=== PATIENT | female | born 1955 | race Caucasian/White ===

== ENCOUNTER 2025-01-02 21:54 | Inpatient (IN) ==
[2025-01-02 22:57] LABS: Hematocrit (blood only) 46.9 % (37.0-47.0); Hemoglobin 15.9 g/dl (12.0-16.0); Immature Granulocytes # (auto) 0.11 K/uL (0.01-0.20); Immature Granulocytes % (auto) 1.1 %; Mean Corpuscular Hemoglobin 31.7 pg (25.0-34.0); Mean Corpuscular Volume 93.4 fL (80.0-100.0); Platelet Count 205 K/uL (130-400); RDW Standard Deviation 46.3 fL (36.4-46.3); Red Blood Count 5.02 M/uL (4.20-5.40); White Blood Count 9.63 K/ul (4.8-10.8)
--- NOTE | 2025-01-02 23:12 | Emergency Department Note ---
History of Present Illness General Chief complaint: Syncope History of Present Illness This 69-year-old female currently at the [facility] for rehab from frequent falls presents ER for passing out on the toilet try to have a bowel movement tonight. Patient passed on the toilet and struck the left side of her face. Patient then crawled out to the living room and vomited. EMS was then summoned. Patient complains of left-sided head face and neck discomfort. Patient denies chest pain, dyspnea, abdominal pain, back pain, numbness, tingling, localized weakness. No blood thinners. Home Medications Medication Instructions Recorded Confirmed Type acetaminophen 325 mg tablet 325 mg PO Q6H PRN PAIN/FEVER 01/03/25 01/03/25 History (Tylenol) atorvastatin 20 mg tablet 20 mg PO DAILY 01/03/25 01/03/25 History benztropine 0.5 mg tablet 0.5 mg PO BID 01/03/25 01/03/25 History fluticasone propionate 50 1 spray intranasal BID PRN Nasal 01/03/25 01/03/25 History mcg/actuation nasal Congestion spray,suspension lamotrigine 200 mg tablet 200 mg PO DAILY 01/03/25 01/03/25 History phenylephrine 5 1 cap PO DIRECTED PRN COLD/FLU 01/03/25 01/03/25 History mg-dextromethorphan 10 SYMPTOMS mg-acetaminophen 325 mg capsule (Daytime Cold and Flu Relief (phenylephrine)) propranolol 20 mg tablet 20 mg PO BID 01/03/25 01/03/25 History trazodone 150 mg tablet 150 mg PO HS 01/03/25 01/03/25 History Allergies Allergy/AdvReac Type Severity Reaction Status Date / Time bupropion Allergy Intermediate HIVES Verified 01/03/25 00:04 morphine AdvReac Intermediate ITCHY Verified 01/03/25 00:04 vancomycin AdvReac Mild RED Verified 01/03/25 00:04 Past Med/Surg History Problem List (Updated 01/03/25 @ 02:53 by Deisi Arreaga PA-C) Sinusitis (Acute) Fracture, nasal (Acute) Head injury (Acute) Vasovagal syncope (Acute) Syncope and collapse Social History Smoking Status: Never smoker Feels Safe at Home: Yes Gender Identity: Female Review of Systems A total of 10 systems reviewed and were otherwise negative Physical Exam Vital Signs Vital Signs - 24 hr 01/02/25 21:59 01/02/25 21:59 01/02/25 21:59 Temperature 36.7 C 36.7 C Temperature Source Oral Oral Pulse Rate 76 Pulse Rate [Finger] Pulse Rate [Right Finger] 76 Pulse Rhythm Regular Pulse Rhythm [Finger] Pulse Rhythm [Right Finger] Regular Pulse Strength Normal Pulse Strength [Finger] Pulse Strength [Right Finger] Normal Respiratory Rate 16 16 Respiratory Effort / Characteristics Non-Labored Spontaneous Respiratory Depth Normal Normal Blood Pressure 170/99 H Blood Pressure [Right Arm] 170/99 H Blood Pressure Mean 122 Blood Pressure Mean [Right Arm] 122 Blood Pressure Position Sitting Blood Pressure Position [Right Arm] Sitting Pulse Oximetry 97 95 97 Oxygen Delivery Method Room Air Room Air Room Air Oxygen Flow Rate 0 Sepsis Recent Fever Within 48 Hours No Sepsis New/Unexplained Change in Mental Status N/A Sepsis Action Taken by Nursing No Action Required 01/02/25 21:59 01/02/25 21:59 01/02/25 22:10 Temperature 36.7 C Temperature Source Oral Pulse Rate 71 Pulse Rate [Finger] 76 Pulse Rate [Right Finger] Pulse Rhythm Pulse Rhythm [Finger] Regular Pulse Rhythm [Right Finger] Pulse Strength Pulse Strength [Finger] Normal Pulse Strength [Right Finger] Respiratory Rate 16 Respiratory Effort / Characteristics Non-Labored Spontaneous Respiratory Depth Normal Blood Pressure Blood Pressure [Right Arm] 170/99 H Blood Pressure Mean Blood Pressure Mean [Right Arm] 122 Blood Pressure Position Blood Pressure Position [Right Arm] Pulse Oximetry 97 97 Oxygen Delivery Method Room Air Room Air Oxygen Flow Rate Sepsis Recent Fever Within 48 Hours Sepsis New/Unexplained Change in Mental Status Sepsis Action Taken by Nursing 01/03/25 02:10 Temperature Temperature Source Pulse Rate 76 Pulse Rate [Finger] Pulse Rate [Right Finger] Pulse Rhythm Pulse Rhythm [Finger] Pulse Rhythm [Right Finger] Pulse Strength Pulse Strength [Finger] Pulse Strength [Right Finger] Respiratory Rate Respiratory Effort / Characteristics Respiratory Depth Blood Pressure Blood Pressure [Right Arm] Blood Pressure Mean Blood Pressure Mean [Right Arm] Blood Pressure Position Blood Pressure Position [Right Arm] Pulse Oximetry Oxygen Delivery Method Oxygen Flow Rate Sepsis Recent Fever Within 48 Hours Sepsis New/Unexplained Change in Mental Status Sepsis Action Taken by Nursing VITALS: Vitals are noted on the nurse's note and reviewed by myself. Vital signs stable. GENERAL: Pleasant patient, in no acute distress, nondiaphoretic, well-developed well-nourished. SKIN: Abrasion and contusion to left forehead and left side of face, the rest of the skin was without rashes, erythema, edema, or bruising. There is no tenting of the skin. Capillary reflex less than 2 seconds. HEAD: Normocephalic EARS: External auditory canals clear EYES: Pupils equal round and reactive to light and accommodation. Conjunctivae without injection, sclerae without icterus. Extraocular movements intact. NOSE: Patent, no discharge. MOUTH: Mucous membranes moist. Pharynx without erythema or exudate. Uvula midline. Airway patent. Tongue does not deviate. NECK: Supple without nuchal rigidity. No lymphadenopathy. No thyromegaly. Cervical spine is nontender. No JVD. C-collar is in place. HEART: Regular rate and rhythm LUNGS: Clear to auscultation bilaterally without wheezes, rales or rhonchi. No retractions or accessory muscle use. ABDOMEN: Positive bowel sounds x 4. Normal tympanic percussion. Soft, nontender, without masses or organomegaly. Vaca sign negative. No guarding or rebound tenderness. No CVA tenderness MUSCULOSKELETAL: No muscle atrophy, erythema, or edema noted. No thoracic or lumbar tenderness. 5-5 strength throughout. NEURO: Patient was alert and oriented to person place and time. Normal sensation to light and sharp touch. No focal neurological deficits. Course Administered Medications Discontinued Medications Acetaminophen (Ofirmev) 1,000 mg in 100 mls @ 400 mls/hr IV NOW STA Stop: 01/03/25 00:43 Last Admin: 01/03/25 00:41 Dose: 400 mls/hr Documented By: ANAYELI Medical Decision Making Medical Records Attestation: I reviewed the patient's medical records. Home Medications Current Medication List: was personally reviewed by me Laboratory Data Attestation: I reviewed the patient's lab results. 01/02/25 22:40 01/02/25 22:40 Lab Results 01/02/25 Range/Units 22:40 WBC 9.63 (4.8-10.8) K/ul RBC 5.02 (4.20-5.40) M/uL Hgb 15.9 (12.0-16.0) g/dl Hct 46.9 (37.0-47.0) % MCV 93.4 (80.0-100.0) fL MCH 31.7 (25.0-34.0) pg MCHC 33.9 (32.0-36.0) g/dL RDW Std Deviation 46.3 (36.4-46.3) fL RDW Coeff of Wilda 13.6 (11.5-14.5) % Plt Count 205 (130-400) K/uL MPV 9.0 L (9.4-12.4) fL Immature Gran % (Auto) 1.1 % Neut % (Auto) 77.8 % Lymph % (Auto) 12.4 % [place] % (Auto) 7.5 % Eos % (Auto) 0.6 % Baso % (Auto) 0.6 % Neut # (Auto) 7.49 H (1.40-6.50) K/uL Lymph # (Auto) 1.19 L (1.20-3.40) K/uL [place] # (Auto) 0.72 H (0.11-0.59) K/uL Eos # (Auto) 0.06 (0.00-0.50) K/uL Baso # (Auto) 0.06 (0.00-0.20) K/uL Immature Gran # (Auto) 0.11 (0.01-0.20) K/uL Sodium 139 (136-145) mmol/L Potassium 3.7 (3.5-5.1) mmol/L Chloride 106 (98-107) mmol/L Carbon Dioxide 25 (21-32) mmol/L Anion Gap 8 (3-11) BUN 21 (6-23) mg/dl Creatinine 0.81 (0.6-1.2) mg/dl Est Cr Clr Drug Dosing 63.2 ml/min eGFR 79.02 BUN/Creatinine Ratio 25.9 H (10-20) Glucose 112 H (70-99(Fasting)) mg/dl Calcium 9.4 (8.6-10.3) mg/dl Magnesium 2.2 (1.7-2.4) mg/dl Total Bilirubin 0.5 (0.2-1.0) mg/dl AST 20 (13-39) U/L ALT 23 (7-52) U/L Alkaline Phosphatase 86 (34-104) U/L Total Creatine Kinase 67 (26-192) U/L Troponin I High Sens 4.5 (0-14) pg/ml Total Protein 7.1 (6.0-8.3) gm/dl Albumin 4.1 (3.4-5.0) gm/dl Globulin 3.0 (2.5-4.0) gm/dl Albumin/Globulin Ratio 1.4 (0.9-2) TSH 1.594 (0.300-4.500) uIu/ml Imaging Data Attestation: I personally reviewed and interpreted this imaging study as follows: Radiologist's Impression: Cervical Spine CT 01/02/25 22:04 Exam(s): CT C SPINE EXAM: CT Cervical Spine Without Intravenous Contrast CLINICAL HISTORY: Reason for exam: head injury/left neck pain. TECHNIQUE: Axial computed tomography images of the cervical spine without intravenous contrast. Automated exposure control was utilized for the study. A dose lowering technique was utilized adhering to the principles of ALARA. COMPARISON: None FINDINGS: Vertebrae: Diffuse osseous demineralization.. No acute fracture. C5 vertebral mild retrolisthesis. C7 vertebral minimal anterolisthesis. Otherwise no segmental malalignment is seen. Discs/spinal canal/neural foramina: No acute findings. Multilevel predominantly C5-C7 levels degenerative disc/endplates and posterior elements spondylotic changes are seen with variable degrees of neuroforaminal stenosis. Soft tissues: Unremarkable. Other findings: Biapical pleural thickening/scarring. . IMPRESSION: No significant abnormalities post trauma. . Electronically signed by: Priyanka Bennett MD, DABR 01/03/25 00:[address] 01/02/25 22:04 Exam(s): CT FACIAL Without Contrast EXAM: CT Maxillofacial Without Intravenous Contrast CLINICAL HISTORY: Reason for exam: head injury/left face/neck pain. TECHNIQUE: Axial computed tomography images of the face without intravenous contrast. Automated exposure control was utilized for the study. A dose lowering technique was utilized adhering to the principles of ALARA. COMPARISON: None. FINDINGS: Bones/joints:: Nondisplaced subtle nasal bone fractures. Otherwise no facial bone acute fracture identified.. Soft tissues: Unremarkable. Orbits: Unremarkable. Sinuses: Completely opacified right frontal sinus. Moderate to severe right ethmoid sinusitis. Very mild right maxillary sinusitis. No air- fluid levels. Other findings: Right frontal scalp small hematoma. . IMPRESSION: Subtle nondisplaced bilateral nasal bone fractures. Please correlate clinically. A completely opacified right frontal sinus. Moderately severe right ethmoid sinusitis. No air-fluid levels. Right frontal scalp small hematoma. . Electronically signed by: Priyanka Bennett MD, DABR 01/03/25 00:[address] 01/02/25 22:04 Exam(s): CT HEAD Without Contrast EXAM: CT Head Without Intravenous Contrast CLINICAL HISTORY: Reason for exam: syncope. TECHNIQUE: Axial computed tomography images of the head/brain without intravenous contrast. Automated exposure control was utilized for the study. A dose lowering technique was utilized adhering to the principles of ALARA. COMPARISON: 05/24/2023 FINDINGS: Motion-induced image degradation. Brain: There is no acute intracranial hemorrhage, mass-effect or midline shift of structures. A small ill-defined focal zone with decreased density in the right frontal iyer radiata, reflective of old ischemic injury. Ventricles: No ventriculomegaly. Demonstrate extensive periventricular/subcortical nonspecific white matter decreased attenuation, typically attributed to sequela of chronic microvascular disease. Bones/joints: Unremarkable. No acute fracture. Soft tissues: Unremarkable. Sinuses: Ethmoid sinusitis. Mastoid air cells: No active disease. Other findings: A small frontal scalp hematoma. . IMPRESSION: No conclusive for acute intracranial pathology identified. There is continued clinical concern, MRI brain exam recommended. Significant most likely chronic ischemic changes of the brain. . Electronically signed by: Priyanka Bennett MD, DABR 01/03/25 00:09 AM MDM Narrative Prior records/ancillary studies reviewed. Triage Nursing notes reviewed. Additional history obtained from family. The patient's history was concerning for traumatic head injury Differential diagnosis: Etiologies such as concussion, contusion, fracture, subdural hematoma, epidural hematoma, intraparenchymal hemorrhage, as well as other traumatic pathologies were entertained. Physical examination findings: As above. ER treatment provided: Wound care by nursing. Patient was sent down for imaging Rocephin was ordered for sinusitis seen on imaging On reassessment the patient felt better. Diagnostics interpreted by me: ECG: Ordered for syncope EKG: Normal sinus, left posterior fascicular block, poor baseline, no acute ST-T wave changes, rate of 71. Impression normal sinus rhythm with left posterior fascicular block independently interpreted by myself The labs Independently Interpreted by myself revealed no worrisome leukocytosis, stable H&H, negative troponin Imaging studies: Imaging was reviewed and read by radiology Head injury evaluation: GCS <15 two hours after injury: 0 Suspected open or depressed skull fracture: 0 Any sign of basilar skull fracture: hemotympanum, raccoon eyes (intraorbital bruising), Bedoya sign (retroauricular bruising), or cerebrospinal fluid leak, mylene- or rhinorrhea: 0 Two or more episodes of vomitin Sixty-five years of age or older: + Amnesia for events occurring more than 30 minutes prior to impact: 0 Dangerous mechanism (pedestrian struck by motor vehicle, occupant ejected from motor vehicle, fall from >= feet or >= stairs): 0 Neurologic deficit: 0 Seizure: 0 Presence of bleeding diathesis or oral anticoagulant use: 0 Return visit for reassessment of a head injury: 0 Total:(any yes, then CT)+ Consultation: A consultation was placed with the hospitalist. The case was discussed and diagnostics were reviewed. The patient was evaluated in the ER for further treatment. It appears the patient has a head injury with nasal bone fracture from syncope with sinusitis. Patient was started on antibiotics for the sinusitis. There was no septal hematoma. Stable labs. No intracranial bleed. Nonischemic EKG. Medicine was consulted case discussed. Patient will be evaluated for admission for the syncope. By the evaluation outlined above emergent etiologies such as subdural hematoma, epidural hematoma, intraparenchymal hemorrhage, as well as others were deemed relatively unlikely. The pt informed about the findings as listed above. All questions were answered and pleased with the treatment. The chart was completed utilizing [employer] Speech voice recognition software. Grammatical errors, random word insertions, pronoun errors, and incomplete sentences are an occassional consequence of this system due to software limitations, ambient noise, and hardware issues. Any formal questions or concerns about the content, text, or information contained within the body of this dictation should be directly addressed to the physician studio assistant for clarification. Impression & Plan Vasovagal syncope, Head injury, Fracture, nasal, Sinusitis Discharge Plan Visit Data Chief Complaint: Syncope ED Provider: Vladislav Peacock ED Midlevel Provider: Deisi Arreaga Discharge Problem: Vasovagal syncope, Head injury, Fracture, nasal, Sinusitis Patient Disposition: Admitted As Inpatient Condition: Good
[2025-01-02 23:30] LABS: Thyroid Stimulating Hormone 1.594 uIu/ml (0.300-4.500)
[2025-01-02 23:44] LABS: Anion Gap 8.0 (3-11); Bilirubin,Total 0.5 mg/dl (0.2-1.0); Magnesium 2.2 mg/dl (1.7-2.4); Potassium 3.7 mmol/L (3.5-5.1); Sodium 139.0 mmol/L (136-145)
[2025-01-02 23:49] LABS: Albumin Globulin Ratio 1.4 (0.9-2); Creatinine Clr Calc Pharmacy 63.2 ml/min; Globulin 3.0 gm/dl (2.5-4.0); Glucose 112.0 mg/dl (70-99(Fasting)); Total Protein 7.1 gm/dl (6.0-8.3)
--- NOTE | 2025-01-03 00:11 | CT Scan Report ---
Exam(s): CT HEAD Without Contrast EXAM: CT Head Without Intravenous Contrast CLINICAL HISTORY: Reason for exam: syncope. TECHNIQUE: Axial computed tomography images of the head/brain without intravenous contrast. Automated exposure control was utilized for the study. A dose lowering technique was utilized adhering to the principles of ALARA. COMPARISON: 05/24/2023 FINDINGS: Motion-induced image degradation. Brain: There is no acute intracranial hemorrhage, mass-effect or midline shift of structures. A small ill-defined focal zone with decreased density in the right frontal iyer radiata, reflective of old ischemic injury. Ventricles: No ventriculomegaly. Demonstrate extensive periventricular/subcortical nonspecific white matter decreased attenuation, typically attributed to sequela of chronic microvascular disease. Bones/joints: Unremarkable. No acute fracture. Soft tissues: Unremarkable. Sinuses: Ethmoid sinusitis. Mastoid air cells: No active disease. Other findings: A small frontal scalp hematoma. . IMPRESSION: No conclusive for acute intracranial pathology identified. There is continued clinical concern, MRI brain exam recommended. Significant most likely chronic ischemic changes of the brain. . Electronically signed by: Priyanka Bennett MD, CLARKER 01/03/25 00:09 AM
--- NOTE | 2025-01-03 00:26 | CT Scan Report ---
Exam(s): CT C SPINE EXAM: CT Cervical Spine Without Intravenous Contrast CLINICAL HISTORY: Reason for exam: head injury/left neck pain. TECHNIQUE: Axial computed tomography images of the cervical spine without intravenous contrast. Automated exposure control was utilized for the study. A dose lowering technique was utilized adhering to the principles of ALARA. COMPARISON: None FINDINGS: Vertebrae: Diffuse osseous demineralization.. No acute fracture. C5 vertebral mild retrolisthesis. C7 vertebral minimal anterolisthesis. Otherwise no segmental malalignment is seen. Discs/spinal canal/neural foramina: No acute findings. Multilevel predominantly C5-C7 levels degenerative disc/endplates and posterior elements spondylotic changes are seen with variable degrees of neuroforaminal stenosis. Soft tissues: Unremarkable. Other findings: Biapical pleural thickening/scarring. . IMPRESSION: No significant abnormalities post trauma. . Electronically signed by: Priyanka Bennett MD, MELISSA 01/03/25 00:26 AM
--- NOTE | 2025-01-03 00:30 | Emergency Department Note ---
ED Visit Note I was consulted by the Advanced Practice Provider. I personally made or approved the management plan for the patient. I performed a substantive portion of the visit. This includes the aspects of: MDM. .
--- NOTE | 2025-01-03 00:37 | CT Scan Report ---
Exam(s): CT FACIAL Without Contrast EXAM: CT Maxillofacial Without Intravenous Contrast CLINICAL HISTORY: Reason for exam: head injury/left face/neck pain. TECHNIQUE: Axial computed tomography images of the face without intravenous contrast. Automated exposure control was utilized for the study. A dose lowering technique was utilized adhering to the principles of ALARA. COMPARISON: None. FINDINGS: Bones/joints:: Nondisplaced subtle nasal bone fractures. Otherwise no facial bone acute fracture identified.. Soft tissues: Unremarkable. Orbits: Unremarkable. Sinuses: Completely opacified right frontal sinus. Moderate to severe right ethmoid sinusitis. Very mild right maxillary sinusitis. No air- fluid levels. Other findings: Right frontal scalp small hematoma. . IMPRESSION: Subtle nondisplaced bilateral nasal bone fractures. Please correlate clinically. A completely opacified right frontal sinus. Moderately severe right ethmoid sinusitis. No air-fluid levels. Right frontal scalp small hematoma. . Electronically signed by: Priyanka Bennett MD, CLARKER 01/03/25 00:36 AM
[2025-01-03] MEDS: ACETAMINOPHEN 1,000 MG/100 ML VIAL IV STA (00:41)
[2025-01-03 00:47] LABS: Alanine Aminotransferase 23.0 U/L (7-52); Alkaline Phosphatase 86.0 U/L (34-104); Blood Urea Nitrogen 21.0 mg/dl (6-23); Calcium 9.4 mg/dl (8.6-10.3); Carbon Dioxide 25.0 mmol/L (21-32); Chloride 106.0 mmol/L (98-107); Creatine Kinase 67.0 U/L (26-192)
--- NOTE | 2025-01-03 02:28 | History & Physical Report ---
Date of Service January 03, 2025 Assessment & Plan (1) Syncope and collapse: Plan: 69-year-old female with past medical history significant for hyperlipidemia, tremors, history of breast cancer in 1998 comes from [facility] because of syncope. Patient says she felt like moving her bowels so she went to bathroom and sat on commode. She did not strain to have bowel movement. Next thing she found herself on the floor and saw blood coming from the nose. She thinks she might have passed out for 5 minutes. Patient then crawled out of the living room and had episode of vomiting then pressed the alert button. Nurses came and EMS was called. Patient complains of some neck pain currently. Denies any headache currently. No chest pain or shortness of breath. No cough. No fevers. No runny nose. Currently no nausea. No abdominal pain. Micturati ng okay. Hemodynamics are okay. Syncope and collapse Had syncope while she was on the commode. Patient says she was not straining. Will monitor on telemetry, IV fluids, orthostatics Will follow echo CT head was okay Will follow UA Will consult cardiology in a.m. for further recommendation Sinusitis and nasal fracture ON Face CT ER gave Rocephin We will continue with Augmentin Tremors On propranolol Hyperlipidemia Statin DVT prophylaxis SCDs for now Disposition Telemetry Full code. History of Present Illness Chief Complaint: Syncope Primary Care Provider: BRIGIDA Ziegler 69-year-old female with past medical history significant for hyperlipidemia, tremors, history of breast cancer in 1998 comes from [facility] because of syncope. Patient says she felt like moving her bowels so she went to bathroom and sat on commode. She did not strain to have bowel movement. Next thing she found herself on the floor and saw blood coming from the nose. She thinks she might have passed out for 5 minutes. Patient then crawled out of the living room and had episode of vomiting then pressed the alert button. Nurses came and EMS was called. Patient complains of some neck pain currently. Denies any headache currently. No chest pain or shortness of breath. No cough. No fevers. No runny nose. Currently no nausea. No abdominal pain. Micturating okay. Hemodynamics are okay. Past medical history. As mentioned above Past surgical history. Left rotator cuff repair x 2. Cholecystectomy. Left mastectomy for breast cancer. Social history. Denies smoking. No alcohol use. Family history. Mother had breast cancer. Allergies Allergy/AdvReac Type Severity Reaction Status Date / Time bupropion Allergy Intermediate HIVES Verified 01/03/25 00:04 morphine AdvReac Intermediate ITCHY Verified 01/03/25 00:04 vancomycin AdvReac Mild RED Verified 01/03/25 00:04 Home Medications Medication Instructions Recorded Confirmed Type acetaminophen 325 mg tablet 325 mg PO Q6H PRN PAIN/FEVER 01/03/25 01/03/25 History (Tylenol) atorvastatin 20 mg tablet 20 mg PO DAILY 01/03/25 01/03/25 History benztropine 0.5 mg tablet 0.5 mg PO BID 01/03/25 01/03/25 History fluticasone propionate 50 1 spray intranasal BID PRN Nasal 01/03/25 01/03/25 History mcg/actuation nasal Congestion spray,suspension lamotrigine 200 mg tablet 200 mg PO DAILY 01/03/25 01/03/25 History phenylephrine 5 1 cap PO DIRECTED PRN COLD/FLU 01/03/25 01/03/25 History mg-dextromethorphan 10 SYMPTOMS mg-acetaminophen 325 mg capsule (Daytime Cold and Flu Relief (phenylephrine)) propranolol 20 mg tablet 20 mg PO BID 01/03/25 01/03/25 History trazodone 150 mg tablet 150 mg PO HS 01/03/25 01/03/25 History Past Med/Surg History Problem List (Updated 01/03/25 @ 02:53 by Deisi Arreaga PA-C) Sinusitis (Acute) Fracture, nasal (Acute) Head injury (Acute) Vasovagal syncope (Acute) Syncope and collapse Social History Smoking Status: Never smoker Do You Dip or Chew Tobacco: No; Hx Alcohol Use: No Hx Substance Use: No Preferred Language: Afghan Communication Ability: Effective Graduate Rn Required: No Beliefs That Will Affect Care: None Current Living Situation: Personal Care Facility Feels Safe at Home: Yes Safety Concerns: Feels Safe At This Time Gender Identity: Female Assistive Devices: None Review of Systems Review of Systems: All systems reviewed & are unremarkable except as noted in HPI & below Physical Exam Physical Exam: General- Not in acute distress Head- atraumatic Eyes- PERRL. ENT- oropharynx clear Neck- supple, no JVD. Lungs- clear to auscultation no wheezing or crackles Heart- regular rhythm; no murmur, no gallop. Abdomen- normal bowel sounds, soft, nontender, no distension Extremities- no pretibial edema, no erythema seen Neuro- alert, oriented PERRL, no facial palsy; no dysarthria; moves extremities Results & Data Results & Data Vital Signs (Past 12 Hours) Vital Signs Temp Pulse Pulse Pulse Resp BP BP 01/03/25 02:10 76 01/02/25 22:10 01/02/25 21:59 71 01/02/25 21:59 36.7 C 76 16 170/99 H 01/02/25 21:59 36.7 C 76 16 170/99 H 01/02/25 21:59 01/02/25 21:59 36.7 C 76 16 170/99 H Pulse Ox O2 Del Method O2 Flow Rate 01/03/25 02:10 01/02/25 22:10 97 Room Air 01/02/25 21:59 01/02/25 21:59 97 Room Air 01/02/25 21:59 97 Room Air 01/02/25 21:59 95 Room Air 0 01/02/25 21:59 97 Room Air Diagnostic Findings Laboratory Results WBC 9.63 K/ul (4.8-10.8) 01/02/25 22:40 RBC 5.02 M/uL (4.20-5.40) 01/02/25 22:40 Hgb 15.9 g/dl (12.0-16.0) 01/02/25 22:40 Hct 46.9 % (37.0-47.0) 01/02/25 22:40 MCV 93.4 fL (80.0-100.0) 01/02/25 22:40 MCH 31.7 pg (25.0-34.0) 01/02/25 22:40 MCHC 33.9 g/dL (32.0-36.0) 01/02/25 22:40 RDW Std Deviation 46.3 fL (36.4-46.3) 01/02/25 22:40 RDW Coeff of Wilda 13.6 % (11.5-14.5) 01/02/25 22:40 Plt Count 205 K/uL (130-400) 01/02/25 22:40 MPV 9.0 fL (9.4-12.4) L 01/02/25 22:40 Immature Gran % (Auto) 1.1 % 01/02/25 22:40 Neut % (Auto) 77.8 % 01/02/25 22:40 Lymph % (Auto) 12.4 % 01/02/25 22:40 [place] % (Auto) 7.5 % 01/02/25 22:40 Eos % (Auto) 0.6 % 01/02/25 22:40 Baso % (Auto) 0.6 % 01/02/25 22:40 Neut # (Auto) 7.49 K/uL (1.40-6.50) H 01/02/25 22:40 Lymph # (Auto) 1.19 K/uL (1.20-3.40) L 01/02/25 22:40 [place] # (Auto) 0.72 K/uL (0.11-0.59) H 01/02/25 22:40 Eos # (Auto) 0.06 K/uL (0.00-0.50) 01/02/25 22:40 Baso # (Auto) 0.06 K/uL (0.00-0.20) 01/02/25 22:40 Immature Gran # (Auto) 0.11 K/uL (0.01-0.20) 01/02/25 22:40 Sodium 139 mmol/L (136-145) 01/02/25 22:40 Potassium 3.7 mmol/L (3.5-5.1) 01/02/25 22:40 Chloride 106 mmol/L (98-107) 01/02/25 22:40 Carbon Dioxide 25 mmol/L (21-32) 01/02/25 22:40 Anion Gap 8 (3-11) 01/02/25 22:40 BUN 21 mg/dl (6-23) 01/02/25 22:40 Creatinine 0.81 mg/dl (0.6-1.2) 01/02/25 22:40 Est Cr Clr Drug Dosing 63.2 ml/min 01/02/25 22:40 eGFR 79.02 01/02/25 22:40 BUN/Creatinine Ratio 25.9 (10-20) H 01/02/25 22:40 Glucose 112 mg/dl (70-99(Fasting)) H 01/02/25 22:40 Calcium 9.4 mg/dl (8.6-10.3) 01/02/25 22:40 Magnesium 2.2 mg/dl (1.7-2.4) 01/02/25 22:40 Total Bilirubin 0.5 mg/dl (0.2-1.0) 01/02/25 22:40 AST 20 U/L (13-39) 01/02/25 22:40 ALT 23 U/L (7-52) 01/02/25 22:40 Alkaline Phosphatase 86 U/L (34-104) 01/02/25 22:40 Total Creatine Kinase 67 U/L (26-192) 01/02/25 22:40 Troponin I High Sens 4.5 pg/ml (0-14) 01/02/25 22:40 Total Protein 7.1 gm/dl (6.0-8.3) 01/02/25 22:40 Albumin 4.1 gm/dl (3.4-5.0) 01/02/25 22:40 Globulin 3.0 gm/dl (2.5-4.0) 01/02/25 22:40 Albumin/Globulin Ratio 1.4 (0.9-2) 01/02/25 22:40 TSH 1.594 uIu/ml (0.300-4.500) 01/02/25 22:[address] 01/02/25 22:04 Exam(s): CT C SPINE EXAM: CT Cervical Spine Without Intravenous Contrast CLINICAL HISTORY: Reason for exam: head injury/left neck pain. TECHNIQUE: Axial computed tomography images of the cervical spine without intravenous contrast. Automated exposure control was utilized for the study. A dose lowering technique was utilized adhering to the principles of ALARA. COMPARISON: None FINDINGS: Vertebrae: Diffuse osseous demineralization.. No acute fracture. C5 vertebral mild retrolisthesis. C7 vertebral minimal anterolisthesis. Otherwise no segmental malalignment is seen. Discs/spinal canal/neural foramina: No acute findings. Multilevel predominantly C5-C7 levels degenerative disc/endplates and posterior elements spondylotic changes are seen with variable degrees of neuroforaminal stenosis. Soft tissues: Unremarkable. Other findings: Biapical pleural thickening/scarring. . IMPRESSION: No significant abnormalities post trauma. . Electronically signed by: Priyanka Bennett MD, MELISSA 01/03/25 00:[address] 01/02/25 22:04 Exam(s): CT FACIAL Without Contrast EXAM: CT Maxillofacial Without Intravenous Contrast CLINICAL HISTORY: Reason for exam: head injury/left face/neck pain. TECHNIQUE: Axial computed tomography images of the face without intravenous contrast. Automated exposure control was utilized for the study. A dose lowering technique was utilized adhering to the principles of ALARA. COMPARISON: None. FINDINGS: Bones/joints:: Nondisplaced subtle nasal bone fractures. Otherwise no facial bone acute fracture identified.. Soft tissues: Unremarkable. Orbits: Unremarkable. Sinuses: Completely opacified right frontal sinus. Moderate to severe right ethmoid sinusitis. Very mild right maxillary sinusitis. No air- fluid levels. Other findings: Right frontal scalp small hematoma. . IMPRESSION: Subtle nondisplaced bilateral nasal bone fractures. Please correlate clinically. A completely opacified right frontal sinus. Moderately severe right ethmoid sinusitis. No air-fluid levels. Right frontal scalp small hematoma. . Electronically signed by: Priyanka Bennett MD, MELISSA 01/03/25 00:[address] 01/02/25 22:04 Exam(s): CT HEAD Without Contrast EXAM: CT Head Without Intravenous Contrast CLINICAL HISTORY: Reason for exam: syncope. TECHNIQUE: Axial computed tomography images of the head/brain without intravenous contrast. Automated exposure control was utilized for the study. A dose lowering technique was utilized adhering to the principles of ALARA. COMPARISON: 05/24/2023 FINDINGS: Motion-induced image degradation. Brain: There is no acute intracranial hemorrhage, mass-effect or midline shift of structures. A small ill-defined focal zone with decreased density in the right frontal iyer radiata, reflective of old ischemic injury. Ventricles: No ventriculomegaly. Demonstrate extensive periventricular/subcortical nonspecific white matter decreased attenuation, typically attributed to sequela of chronic microvascular disease. Bones/joints: Unremarkable. No acute fracture. Soft tissues: Unremarkable. Sinuses: Ethmoid sinusitis. Mastoid air cells: No active disease. Other findings: A small frontal scalp hematoma. . IMPRESSION: No conclusive for acute intracranial pathology identified. There is continued clinical concern, MRI brain exam recommended. Significant most likely chronic ischemic changes of the brain. . Electronically signed by: Priyanka Bennett MD, DABR 01/03/25 00:09 AM ECG Additional Comments: ECG. Normal sinus rhythm rate of 71. Left posterior fascicular block. QTc 462 Code Status & VTE Plan VTE Prophylaxis Plan VTE Prophylaxis will be ordered: Yes
[2025-01-03] MEDS ORDERED: NITROGLYCERIN SL 0.4 MG/TAB TAB SL PRN (02:53)
[2025-01-03] MEDS ORDERED: FLUTICASONE PROPIONATE NA SPR 16 GM BTL PRN (02:53)
[2025-01-03] MEDS: cefTRIAXone SODIUM 2,000 MG/50 ML BAG IV STA (03:12)
[2025-01-03 04:49] LABS: Hematocrit (blood only) 43.4 % (37.0-47.0); Hemoglobin 14.5 g/dl (12.0-16.0); Immature Granulocytes # (auto) 0.07 K/uL (0.01-0.20); Immature Granulocytes % (auto) 0.7 %; Mean Corpuscular Hemoglobin 31.4 pg (25.0-34.0); Mean Corpuscular Volume 93.9 fL (80.0-100.0); Platelet Count 212 K/uL (130-400); RDW Standard Deviation 46.2 fL (36.4-46.3); Red Blood Count 4.62 M/uL (4.20-5.40); White Blood Count 9.91 K/ul (4.8-10.8)
[2025-01-03 05:08] LABS: Anion Gap 8.0 (3-11); Blood Urea Nitrogen 17.0 mg/dl (6-23); Calcium 9.2 mg/dl (8.6-10.3); Carbon Dioxide 27.0 mmol/L (21-32); Chloride 107.0 mmol/L (98-107); Creatinine Clr Calc Pharmacy 71.1 ml/min; Glucose 98.0 mg/dl (70-99(Fasting)); Magnesium 2.1 mg/dl (1.7-2.4); Potassium 3.4 mmol/L (3.5-5.1); Sodium 142.0 mmol/L (136-145)
[2025-01-03] MEDS: SODIUM CHLORIDE 0.9% 1,000 ML IV SCH (05:25)
[2025-01-03 06:07] LABS: Appearance Urine Clear (Clear); Bacteria Urine Automated None Seen (None Seen); Cast Urine Automated 0-2 /lpf (0-2); Epithelial Cell Urine Auto 0-2 /hpf (0-2); Glucose Urine UA Negative (Negative); RBC Urine Automated 0-2 /hpf (0-2); Starch Talc Urine Present (None Prsent)
[2025-01-03] MEDS: BENZTROPINE MESYLATE 0.5 MG TAB PO SCH (08:19)
[2025-01-03] MEDS: AMOXICILLIN/CLAVULANATE 875 MG TAB PO SCH (08:20)
[2025-01-03] MEDS: ATORVASTATIN 20 MG TAB PO SCH (08:20)
[2025-01-03] MEDS: lamoTRIgine 100 MG TAB PO SCH (08:20)
[2025-01-03] MEDS: PROPRANOLOL HCL 20 MG TAB PO SCH (08:20)
[2025-01-03] MEDS: ACETAMINOPHEN 325 MG TAB PO PRN (08:25)
--- NOTE | 2025-01-03 09:48 | Cardiology Consultation ---
Date of Consultation January 03, 2025 Assessment & Plan (1) Syncope and collapse: Plan Assessment: 69 year old female presents after syncopal episode resulting in striking her face and subsequent nasal fracture. Plan: 1. Syncope and collapse -one time syncopal episode with unclear etiology. Possible vasal vagal event as patient had developed GI distress shortly before. -EKG with T wave inversion in V1, 2 and AVL with no study prior for comparison. Denies any prior cardiac history. no recent chest pain, pressure, palpitations, or shortness of breath -Echo obtained showing preserved LVEF 55-60% no wall motion abnormalities and no significant heart valve disease. -No acute events on telemetry, will continue to monitor on telemetry with plan for OP ZIO monitor when appropriate for discharge. -Continued management of nasal fracture and incidental finding of sinusitis per primary team. -Continue Propranolol as per home regimen Case has been discussed with Dr. Herzog. Further recommendations regarding plan of care as per his assessment. I spent a total of 40 minutes on the date of service in preparation, delivery, documentation of the care provided to the patient excluding any time spent in the performance of separately billed services. BRIGIDA [facility] Card[facility] Supervising Physician Co-Signing Physician Notes Attending attestation: Case reviewed with the advanced practitioner. I have personally performed a history and physical examination on the patient. I have reviewed the advanced practitioner's documentation on the date of service referenced in note, and I agree with, and take responsibility for the plan of care. Subjective: Patient states that she has received most of her care in [place]. There are no previous records available at this institution or within the outpatient [facility] [place] system record with regards to past cardiac workup. She describes that this is her fourth loss of consciousness episode dating back to July of this year. She states at that time she fell and broke ribs and was hospitalized in [place] and subsequently had been in a prison for reha b but was transferred to the [facility] which was an affiliate prison. Exam: Cardiovascular: Regular rhythm, no murmurs, no edema Data: Transthoracic echocardiogram performed today reveals normal LV wall motion, no echo evidence of previous infarct, LVEF in the range of 55-60%. Pericardial effusion present. No significant valvular disease. High-sensitivity troponin negative x 3. Telemetry reveals sinus rhythm in the 60s 80s without tachycardia or bradycardia thus far. Impression/ Plan: Syncope, perhaps recurrent syncope * Continue propranolol * Continue observation on telemetry * Likely proceed with outpatient ekg monitor * Driving restriction until she is 6 months free of loss of postural tone episodes. I spent a total of 20 minutes coordinating, documenting, and providing care for this patient excluding time spent in the performance of separately billed services or time spent by another provider. Vamsi Herzog DO History of Present Illness Reason for Consultation: syncope Requesting Physician: [facility] hospitalist Attending Physician: Luca Dill MD History of Present Illness HPI: Patient is a 69 year old female with pMHx significant for HLD, tremors, history of breast cancer (1998) that presented to the ER from the [facility] facility after a syncopal episode. Patient states that she was laying in bed when she felt flushed, dizzy and nauseated. She got up and ambulated into the bathroom feeling as though either needed to urinate or move her bowels. She thinks she started to pee, felt suddenly lightheaded and only remembers waking up on the floor seeing blood everywhere. patient had struck her face in the fall with a notable lump to the forehead as well as nasal deformity. she has a bandage to the forehead, and obvious bridge deformity. She recalls knowing where she was and crawling back to her bed where she was able to call the nurse. Denies chest pain, pressure or palpitations. Denies prior cardiac history, does not see a yard brakeman outpatient. EKG on admission NSR T wave inversion in leads I, II and AVL. No prior study for comparison Echocardiogram today REview of telemetry shows SR rates 60's Allergies Allergy/AdvReac Type Severity Reaction Status Date / Time bupropion Allergy Intermediate HIVES Verified 01/03/25 00:04 morphine AdvReac Intermediate ITCHY Verified 01/03/25 00:04 vancomycin AdvReac Mild RED Verified 01/03/25 00:04 Home Medications Medication Instructions Recorded Confirmed Type acetaminophen 325 mg tablet 325 mg PO Q6H PRN PAIN/FEVER 01/03/25 01/03/25 History (Tylenol) atorvastatin 20 mg tablet 20 mg PO DAILY 01/03/25 01/03/25 History benztropine 0.5 mg tablet 0.5 mg PO BID 01/03/25 01/03/25 History fluticasone propionate 50 1 spray intranasal BID PRN Nasal 01/03/25 01/03/25 History mcg/actuation nasal Congestion spray,suspension lamotrigine 200 mg tablet 200 mg PO DAILY 01/03/25 01/03/25 History phenylephrine 5 1 cap PO DIRECTED PRN COLD/FLU 01/03/25 01/03/25 History mg-dextromethorphan 10 SYMPTOMS mg-acetaminophen 325 mg capsule (Daytime Cold and Flu Relief (phenylephrine)) propranolol 20 mg tablet 20 mg PO BID 01/03/25 01/03/25 History trazodone 150 mg tablet 150 mg PO HS 01/03/25 01/03/25 History Patient History Social History Smoking Status: Never smoker Do You Dip or Chew Tobacco: No; Hx Alcohol Use: No Hx Substance Use: No Preferred Language: Greek Communication Ability: Effective Technical Sales Support Specialist Required: No Beliefs That Will Affect Care: None Current Living Situation: Personal Care Facility Feels Safe at Home: Yes Safety Concerns: Feels Safe At This Time Gender Identity: Female Assistive Devices: None Review of Systems Review of Systems: All systems reviewed & are unremarkable except as noted in HPI & below Physical Exam Constitutional: well developed, well nourished and + overweight; no acute distress Neck: normal visual inspection and trachea midline Respiratory: normal respiratory effort, lungs clear to auscultation Cardiovascular: RRR, no murmur, no edema Heart Sounds: normal S1 and normal S2 Vessels: dorsalis pedis pulses present; no JVD Extremities: no edema Skin: no rashes, warm and dry + ecchymosis (nasal bridge) Psychiatric: A+Ox3, euthymic affect Results & Data Vital Signs (Past 12 Hours) Vital Signs Temp Pulse Pulse Pulse Resp BP BP 01/03/25 07:19 62 18 125/76 01/03/25 07:08 65 01/03/25 07:00 125/76 01/03/25 07:00 125/76 01/03/25 06:57 76 20 01/03/25 06:39 01/03/25 06:36 65 20 01/03/25 06:30 64 22 135/70 01/03/25 06:09 64 21 01/03/25 05:30 61 20 119/66 01/03/25 05:23 61 19 124/69 01/03/25 05:00 58 L 21 124/69 01/03/25 04:00 61 19 144/81 H 01/03/25 03:30 69 22 147/91 H 01/03/25 03:00 80 22 01/03/25 03:00 36.6 C 71 18 147/96 H 01/03/25 03:00 36.6 C 71 18 147/96 H 01/03/25 02:53 63 18 01/03/25 02:30 76 20 155/96 H 01/03/25 02:10 76 01/03/25 02:00 36.6 C 81 18 155/96 H 01/03/25 01:00 36.6 C 75 18 149/89 H 01/03/25 00:00 36.6 C 76 20 162/98 H 01/02/25 23:00 36.7 C 82 22 142/96 H 01/02/25 22:10 01/02/25 21:59 71 01/02/25 21:59 36.7 C 76 16 170/99 H 01/02/25 21:59 36.7 C 76 16 170/99 H 01/02/25 21:59 01/02/25 21:59 36.7 C 76 16 170/99 H Pulse Ox O2 Del Method O2 Flow Rate 01/03/25 07:19 90 Room Air 01/03/25 07:08 01/03/25 07:00 01/03/25 07:00 01/03/25 06:57 91 01/03/25 06:39 92 Room Air 01/03/25 06:36 92 01/03/25 06:30 92 Room Air 01/03/25 06:09 90 Room Air 01/03/25 05:30 92 Room Air 01/03/25 05:23 92 Room Air 01/03/25 05:00 93 Room Air 01/03/25 04:00 93 Room Air 01/03/25 03:30 94 Room Air 01/03/25 03:00 93 Room Air 01/03/25 03:00 95 Room Air 01/03/25 03:00 95 Room Air 01/03/25 02:53 96 Room Air 01/03/25 02:30 93 Room Air 01/03/25 02:10 01/03/25 02:00 94 Room Air 01/03/25 01:00 98 Room Air 01/03/25 00:00 97 Room Air 01/02/25 23:00 97 Room Air 01/02/25 22:10 97 Room Air 01/02/25 21:59 01/02/25 21:59 97 Room Air 01/02/25 21:59 97 Room Air 01/02/25 21:59 95 Room Air 0 01/02/25 21:59 97 Room Air Laboratory Results Cardiac Enzymes 01/02/25 01/03/25 01/03/25 Range/Units 22:40 04:05 10:12 AST 20 (13-39) U/L Troponin I High Sens 4.5 7.0 6.7 (0-14) pg/ml CBC 01/02/25 01/03/25 Range/Units 22:40 04:05 WBC 9.63 9.91 (4.8-10.8) K/ul RBC 5.02 4.62 (4.20-5.40) M/uL Hgb 15.9 14.5 (12.0-16.0) g/dl Hct 46.9 43.4 (37.0-47.0) % Plt Count 205 212 (130-400) K/uL Neut # (Auto) 7.49 H 7.89 H (1.40-6.50) K/uL Lymph # (Auto) 1.19 L 1.09 L (1.20-3.40) K/uL [place] # (Auto) 0.72 H 0.76 H (0.11-0.59) K/uL Eos # (Auto) 0.06 0.05 (0.00-0.50) K/uL Baso # (Auto) 0.06 0.05 (0.00-0.20) K/uL Comprehensive Metabolic Panel 01/02/25 01/03/25 Range/Units 22:40 04:05 Sodium 139 142 (136-145) mmol/L Potassium 3.7 3.4 L (3.5-5.1) mmol/L Chloride 106 107 (98-107) mmol/L Carbon Dioxide 25 27 (21-32) mmol/L BUN 21 17 (6-23) mg/dl Creatinine 0.81 0.72 (0.6-1.2) mg/dl Glucose 112 H 98 (70-99(Fasting)) mg/dl Calcium 9.4 9.2 (8.6-10.3) mg/dl AST 20 (13-39) U/L ALT 23 (7-52) U/L Alkaline Phosphatase 86 (34-104) U/L Total Protein 7.1 (6.0-8.3) gm/dl Albumin 4.1 (3.4-5.0) gm/dl Intake and Output 01/02/25 01/03/25 01/03/25 22:59 06:59 14:59 Intake Total 150 / 150 798.333 / 798.333 Output Total 700 / 700 Balance -550 / -550 798.333 / 798.333 Intake: IV 150 / 150 798.333 / 798.333 Acetaminophen 1,000 mg In 100 100 / 100 ml @ 400 mls/hr IV NOW STA Rx#: [id number] Sodium Chloride 0.9% 1,000 ml @ 798.333 / 798.333 100 mls/hr IV .Q10H [place] Rx#: [id number] cefTRIAXone SODIUM 2,000 mg In 50 / 50 50 ml @ 100 mls/hr IV NOW STA Rx#:[id number] Output: Urine 700 / 700 Other: Weight 82.4 kg 5 kg Weight Measurement Method Chair Scale Built in [facility] PG Care Time/CCT Total # of Minutes Spent Total Time Spent with Patient: Total time spent is greater than 50% in coordination of care (as documented) at patient's floor/unit and/or counseling patient: Coding Level of Care Code 94825 IN/OBS CONSULT LVL 5,80M Diagnoses Syncope and collapse R55 Time Spent (min) 60 Comment BRIGIDA Duncan spent 40 minutes, Vamsi Herzog DO spent 20 minutes
--- NOTE | 2025-01-03 14:10 | Hospitalist Progress Note ---
Date of Service January 03, 2025 Assessment & Plan (1) Syncope and collapse: Plan: 69-year-old female with past medical history significant for hyperlipidemia, tremors, history of breast cancer in 1998 comes from [facility] because of syncope. Patient says she felt like moving her bowels so she went to bathroom and sat on commode. She did not strain to have bowel movement. Next thing she found herself on the floor and saw blood coming from the nose. She thinks she might have passed out for 5 minutes. Patient then crawled out of the living room and had episode of vomiting then pressed the alert button. Nurses came and EMS was called. Syncope Had syncope while she was on the commode. Reports previous history of syncopal episode as well; no incontinence of bladder/bowel. CT head,cervical spine did not show any injury/trauma Echocardiogram shows EF of 55 to 60% with grade 1 diastolic dysfunction EKG shows normal sinus rhythm; no significant ST or T wave changes. Continue to monitor on telemetry; will need Zio patch as outpatient to assess for cardiac arrhythmia Obtain PT OT evaluation Sinusitis and nasal fracture For CT shows opacified right frontal sinus and right ethmoid sinusitis, her right frontal scalp hematoma. Started on Augmentin; plan to treat for 7 days Essential Tremors On propranolol and benztropine,continue Hyperlipidemia on statin,continue DVT prophylaxis SCDs for now Disposition Telemetry Full code. Please note the above document was generated using voice recognition software. It may contain grammatical, syntax or spelling errors. Any formal questions or concerns about the content, text or information contained within the body of this dictation should be directly addressed to the provider for clarification Admission and Anticipated Discharge Date Admission Date: January 03, 2025 Subjective Patient seen and examined at bedside. She is comfortable; denies any pain or discomfort. No history of dizziness/syncope since the hospitalization. Telemetry shows sinus rhythm Review of Systems Review of Systems: All systems reviewed & are unremarkable except as noted in Subjective Physical Exam Physical Exam: Constitutional: Awake alert oriented x 3. Tremors present; reports at baseline Head; dressing intact over the forehead; clean and dry. Respiratory: normal respiratory effort, lungs clear to auscultation, no wheeze, rales, rhonchi. Normal insp/exp effort, no accessory muscle use Cardiovascular: RRR, no murmur, no edema Vessels: no JVD or carotid bruit Chest: normal inspection of chest Abdomen: normal bowel sounds, soft, nontender, no hepatosplenomegaly Skin: no rashes, warm and dry normal turgor Neurologic: PERRL, EOMI, accommodation nl, no face palsy, no dysarthria CN's II- XI intact bilaterally and moves all extremities Psychiatric: A+Ox3, euthymic affect Results & Data Results & Data Vital Signs (Past 12 Hours) Vital Signs Temp Pulse Pulse Resp BP BP Pulse Ox 01/03/25 13:17 65 16 144/99 H 96 01/03/25 10:48 63 18 142/93 H 95 01/03/25 10:35 142/93 H 01/03/25 10:33 65 23 94 01/03/25 10:32 146/99 H 01/03/25 10:30 137/89 01/03/25 10:30 64 25 H 94 01/03/25 10:03 64 17 92 01/03/25 10:00 135/87 01/03/25 09:57 66 20 91 01/03/25 09:30 68 21 91 01/03/25 09:30 133/91 01/03/25 09:30 133/91 01/03/25 09:00 147/98 H 01/03/25 09:00 147/98 H 01/03/25 09:00 69 22 93 01/03/25 08:30 111/67 01/03/25 08:30 111/67 01/03/25 08:30 111/67 01/03/25 08:27 70 21 92 01/03/25 08:00 122/73 01/03/25 08:00 122/73 01/03/25 08:00 63 21 92 01/03/25 07:30 64 21 92 01/03/25 07:30 121/63 01/03/25 07:30 121/63 01/03/25 07:30 121/63 01/03/25 07:21 62 20 90 01/03/25 07:19 62 18 125/76 90 01/03/25 07:08 65 01/03/25 07:00 125/76 01/03/25 07:00 125/76 01/03/25 06:57 76 20 91 01/03/25 06:39 92 01/03/25 06:36 65 20 92 07/09/25 06:30 64 22 135/70 92 01/03/25 06:09 64 21 90 01/03/25 05:30 61 20 119/66 92 01/03/25 05:23 61 19 124/69 92 01/03/25 05:00 58 L 21 124/69 93 01/03/25 04:00 61 19 144/81 H 93 01/03/25 03:30 69 22 147/91 H 94 01/03/25 03:00 80 22 93 01/03/25 03:00 36.6 C 71 18 147/96 H 95 01/03/25 03:00 36.6 C 71 18 147/96 H 95 01/03/25 02:53 63 18 96 01/03/25 02:30 76 20 155/96 H 93 01/03/25 02:10 76 O2 Del Method 01/03/25 13:17 Room Air 01/03/25 10:48 Room Air 01/03/25 10:35 01/03/25 10:33 01/03/25 10:32 01/03/25 10:30 01/03/25 10:30 01/03/25 10:03 01/03/25 10:00 01/03/25 09:57 01/03/25 09:30 01/03/25 09:30 01/03/25 09:30 01/03/25 09:00 01/03/25 09:00 01/03/25 09:00 01/03/25 08:30 01/03/25 08:30 01/03/25 08:30 01/03/25 08:27 01/03/25 08:00 01/03/25 08:00 01/03/25 08:00 01/03/25 07:30 01/03/25 07:30 01/03/25 07:30 01/03/25 07:30 01/03/25 07:21 01/03/25 07:19 Room Air 01/03/25 07:08 01/03/25 07:00 01/03/25 07:00 01/03/25 06:57 01/03/25 06:39 Room Air 01/03/25 06:36 01/03/25 06:30 Room Air 01/03/25 06:09 Room Air 01/03/25 05:30 Room Air 01/03/25 05:23 Room Air 01/03/25 05:00 Room Air 01/03/25 04:00 Room Air 01/03/25 03:30 Room Air 01/03/25 03:00 Room Air 01/03/25 03:00 Room Air 01/03/25 03:00 Room Air 01/03/25 02:53 Room Air 01/03/25 02:30 Room Air 01/03/25 02:10
--- NOTE | 2025-01-03 17:33 | Electrocardiogram Report ---
Test Reason : Blood Pressure : */* mmHG Vent. Rate : 71 BPM Atrial Rate : 71 BPM P-R Int : 172 ms QRS Dur : 80 ms QT Int : 426 ms P-R-T Axes : * 167 168 degrees QTcB Int : 462 ms likely limb lead reversal Normal sinus rhythm Left posterior fascicular block Abnormal ECG No previous ECGs available Confirmed by Pal Whyte ([id number]) on 01/03/2025 5:33:36 PM Referred By: REFERRED SELF Confirmed By: Pal Whyte
[2025-01-03] MEDS: cefTRIAXone SODIUM 2,000 MG/50 ML BAG IV SCH (20:52)
[2025-01-04 08:08] LABS: Anion Gap 5.0 (3-11); Blood Urea Nitrogen 15.0 mg/dl (6-23); Calcium 8.9 mg/dl (8.6-10.3); Carbon Dioxide 26.0 mmol/L (21-32); Chloride 111.0 mmol/L (98-107); Creatinine Clr Calc Pharmacy 76.0 ml/min; Glucose 85.0 mg/dl (70-99(Fasting)); Potassium 4.0 mmol/L (3.5-5.1); Sodium 142.0 mmol/L (136-145)
--- NOTE | 2025-01-04 09:13 | Cardiology Progress Note ---
Date of Service January 04, 2025 Assessment & Plan (1) Syncope and collapse: Plan Assessment: 69 year old female presents after syncopal episode resulting in striking her face and subsequent nasal fracture. Plan: 01/03/2025 1. Syncope and collapse -one time syncopal episode with unclear etiology. Possible vasal vagal event as patient had developed GI distress shortly before. -EKG with T wave inversion in V1, 2 and AVL with no study prior for comparison. Denies any prior cardiac history. no recent chest pain, pressure, palpitations, or shortness of breath -Echo obtained showing preserved LVEF 55-60% no wall motion abnormalities and no significant heart valve disease. -No acute events on telemetry, will continue to monitor on telemetry with plan for OP ZIO monitor when appropriate for discharge. -Continued management of nasal fracture and incidental finding of sinusitis per primary team. -Continue Propranolol as per home regimen 01/04/25: -Patient is resting in bed without acute cardiac concerns at this time. She is quite sore with significant bruising to the face from her syncopal event and subsequent fall. -Continue propranolol with plan for outpatient cardiac monitoring (14 day ZIO) following hospitalization. -No acute events on telemetry overnight -Driving restriction as outlined by Dr. Herzog yesterday until 6 months free of loss of postural tone events. Case has been discussed with Dr. Herzog. Further recommendations regarding plan of care as per his assessment. I spent a total of 30 minutes on the date of service in preparation, delivery, documentation of the care provided to the patient excluding any time spent in the performance of separately billed services. BRIGIDA Curiel [facility] Admission and Anticipated Discharge Date Admission Date: January 03, 2025 Supervising Physician Co-Signing Physician Notes Attending attestation: Case reviewed with the advanced practitioner. I have personally performed a history and physical examination on the patient. I have reviewed the advanced practitioner's documentation on the date of service referenced in note, and I agree with, and take responsibility for the plan of care. I spent a total of 20 minutes coordinating, documenting, and providing care for this patient excluding time spent in the performance of separately billed services or time spent by another provider. Vamsi Herzog, Subjective 01/04/2025: Patient seen and examined in follow up today. Feeling fair. She denies any acute cardiac concerns. No chest pain, pressure, palpitations, no near syncope or syncope. no edema, but does endorsed generalized body aches. She has substantial bruising around the eyes/face consistent with her syncopal event/fall in which she struck her face and broke her nose. Labs, vitals, diagnostics, telemetry and documentation reviewed. Telemetry reviewed showing SR rates 70-90's. No acute events overnight. Review of Systems Review of Systems: All systems reviewed & are unremarkable except as noted in HPI & below Physical Exam Constitutional: well developed, well nourished and + overweight; no acute distress Neck: normal visual inspection and trachea midline Respiratory: normal respiratory effort, lungs clear to auscultation Cardiovascular: RRR, no murmur, no edema Heart Sounds: normal S1 and normal S2 Vessels: dorsalis pedis pulses present; no JVD Extremities: no edema Skin: no rashes, warm and dry + ecchymosis (nasal bridge) Psychiatric: A+Ox3, euthymic affect Results & Data Vital Signs (Past 12 Hours) Vital Signs Temp Pulse Pulse Resp BP Pulse Ox O2 Del Method 01/04/25 08:00 36.6 C 71 18 134/83 99 Room Air 01/04/25 00:16 81 01/03/25 22:17 36.8 C 80 16 111/80 94 Room Air Laboratory Results Cardiac Enzymes 01/03/25 Range/Units 17:03 Troponin I High Sens 5.3 (0-14) pg/ml Comprehensive Metabolic Panel 01/04/25 Range/Units 07:22 Sodium 142 (136-145) mmol/L Potassium 4.0 (3.5-5.1) mmol/L Chloride 111 H (98-107) mmol/L Carbon Dioxide 26 (21-32) mmol/L BUN 15 (6-23) mg/dl Creatinine 0.66 (0.6-1.2) mg/dl Glucose 85 (70-99(Fasting)) mg/dl Calcium 8.9 (8.6-10.3) mg/dl Intake and Output 01/03/25 01/04/25 01/04/25 22:59 06:59 14:59 Intake Total 110 / 908.333 Balance 110 / 908.333 Intake: IV 50 / 848.333 cefTRIAXone SODIUM 2,000 mg In 50 / 50 50 ml @ 100 mls/hr IV Q24H [facility] Rx#:[id number] Oral 60 / 60 Other: # Unmeasured Voids 1 Weight 79.2 kg 79.3 kg Weight Measurement Method Standing Scale PG Care Time/CCT Total # of Minutes Spent Total Time Spent with Patient: Total time spent is greater than 50% in coordination of care (as documented) at patient's floor/unit and/or counseling patient: Coding Level of Care Code 27344 SUB INP/OBS CARE 3/50MIN History Detailed Exam Detailed Medical Decision Making High Complexity Diagnoses Syncope and collapse R55 Time Spent (min) 50 Comment 30 minutes were spent by BRIGIDA Duncan, 20 minutes by Vmasi Herzog DO
[2025-01-04] MEDS: BACLOFEN 10 MG TAB PO STA (12:40)
[2025-01-04] MEDS: KETOROLAC TROMETHAMINE 15 MG/ML VIAL IV ONE (12:40)
--- NOTE | 2025-01-04 12:49 | Hospitalist Progress Note ---
Date of Service January 04, 2025 Assessment & Plan (1) Syncope and collapse: Plan: 69-year-old female with past medical history significant for hyperlipidemia, tremors, history of breast cancer in 1998 comes from [facility] because of syncope. Patient says she felt like moving her bowels so she went to bathroom and sat on commode. She did not strain to have bowel movement. Next thing she found herself on the floor and saw blood coming from the nose. She thinks she might have passed out for 5 minutes. Patient then crawled out of the living room and had episode of vomiting then pressed the alert button. Nurses came and EMS was called. Syncope Had syncope while she was on the commode. Reports previous history of syncopal episode as well; no incontinence of bladder/bowel. CT head,cervical spine did not show any injury/trauma Echocardiogram shows EF of 55 to 60% with grade 1 diastolic dysfunction EKG shows normal sinus rhythm; no significant ST or T wave changes. Continue to monitor on telemetry; will need Zio patch as outpatient to assess for cardiac arrhythmia Obtain PT OT evaluation Sinusitis and nasal fracture Neck pain For CT shows opacified right frontal sinus and right ethmoid sinusitis, her right frontal scalp hematoma. On ceftriaxone; plan to switch over to p.o. at the time of the discharge. On tramadol for pain control for neck pain along with as needed baclofen. Essential Tremors On propranolol and benztropine,continue Hyperlipidemia on statin,continue DVT prophylaxis SCDs for now Disposition Telemetry. PT OT ordered. may need rehab Full code. Time spent evaluating patient, direct bedside care, chart review, placing orders, interpretation of diagnostic studies, discussion with consultants, patient, and family members, as well as other required patient management activities is 50 minutes Please note the above document was generated using voice recognition software. It may contain grammatical, syntax or spelling errors. Any formal questions or concerns about the content, text or information contained within the body of this dictation should be directly addressed to the provider for clarification Admission and Anticipated Discharge Date Admission Date: January 03, 2025 Subjective Patient seen and examined at bedside. She reports significant lateral neck pain and spasm on her left side. She reports that the onset happened overnight; ROM is limited by pain. Review of Systems Review of Systems: All systems reviewed & are unremarkable except as noted in Subjective Physical Exam Physical Exam: Constitutional: Awake alert oriented x 3. Tremors present; reports at baseline Head; dressing intact over the forehead; clean and dry. Neck-Painful range of motion of the neck on the lateral aspect. no tenderness/deformity Respiratory: normal respiratory effort, lungs clear to auscultation, no wheeze, rales, rhonchi. Normal insp/exp effort, no accessory muscle use Cardiovascular: RRR, no murmur, no edema Vessels: no JVD or carotid bruit Chest: normal inspection of chest Abdomen: normal bowel sounds, soft, nontender, no hepatosplenomegaly Skin: no rashes, warm and dry normal turgor Neurologic: PERRL, EOMI, accommodation nl, no face palsy, no dysarthria CN's II- XI intact bilaterally and moves all extremities Psychiatric: A+Ox3, euthymic affect Results & Data Results & Data Vital Signs (Past 12 Hours) Vital Signs Temp Pulse Pulse Resp BP Pulse Ox O2 Del Method 01/04/25 11:52 36.6 C 70 19 149/92 H 93 Room Air 01/04/25 09:00 67 01/04/25 08:00 36.6 C 71 18 134/83 99 Room Air
[2025-01-04] MEDS: ACETAMINOPHEN 1,000 MG/100 ML VIAL IV STA (12:53)
[2025-01-04] MEDS: IBUPROFEN 600 MG TAB PO SCH (17:43)
--- NOTE | 2025-01-04 18:37 | Electrocardiogram Report ---
Test Reason : Blood Pressure : */* mmHG Vent. Rate : 80 BPM Atrial Rate : 80 BPM P-R Int : 174 ms QRS Dur : 88 ms QT Int : 404 ms P-R-T Axes : 38 5 15 degrees QTcB Int : 465 ms Normal sinus rhythm Normal ECG When compared with ECG of 02-Jan-2025 21:59, Left posterior fascicular block is no longer Present Criteria for Inferior infarct are no longer Present Confirmed by Pal Whyte ([id number]) on 01/04/2025 6:37:44 PM Referred By: REFERRED SELF Confirmed By: Pal Whyte
[2025-01-04] MEDS: DICLOFENAC SOD 1% GEL 100 GM TUBE EXT SCH (20:27)
[2025-01-05 07:17] LABS: Hematocrit (blood only) 42.9 % (37.0-47.0); Hemoglobin 14.7 g/dl (12.0-16.0); Immature Granulocytes # (auto) 0.07 K/uL (0.01-0.20); Immature Granulocytes % (auto) 1.2 %; Mean Corpuscular Hemoglobin 32.0 pg (25.0-34.0); Mean Corpuscular Volume 93.3 fL (80.0-100.0); Platelet Count 192 K/uL (130-400); RDW Standard Deviation 46.4 fL (36.4-46.3); Red Blood Count 4.60 M/uL (4.20-5.40); White Blood Count 5.85 K/ul (4.8-10.8)
[2025-01-05 07:32] LABS: Anion Gap 6.0 (3-11); Blood Urea Nitrogen 12.0 mg/dl (6-23); Calcium 8.8 mg/dl (8.6-10.3); Carbon Dioxide 25.0 mmol/L (21-32); Chloride 109.0 mmol/L (98-107); Creatinine Clr Calc Pharmacy 88.8 ml/min; Glucose 87.0 mg/dl (70-99(Fasting)); Potassium 4.0 mmol/L (3.5-5.1); Sodium 140.0 mmol/L (136-145)
--- NOTE | 2025-01-05 08:48 | Electrocardiogram Report ---
Test Reason : Blood Pressure : */* mmHG Vent. Rate : 83 BPM Atrial Rate : 83 BPM P-R Int : 174 ms QRS Dur : 82 ms QT Int : 404 ms P-R-T Axes : 32 6 24 degrees QTcB Int : 474 ms Normal sinus rhythm Minimal voltage criteria for LVH, may be normal variant Borderline ECG When compared with ECG of 04-Jan-2025 05:03, No significant change was found Confirmed by Pal Whyte ([id number]) on 01/05/2025 8:48:02 AM Referred By: REFERRED SELF Confirmed By: Pal Whyte
--- NOTE | 2025-01-05 09:00 | Cardiology Progress Note ---
Date of Service January 05, 2025 Assessment & Plan (1) Syncope and collapse: Plan Assessment: 69 year old female presents after syncopal episode resulting in striking her face and subsequent nasal fracture. Plan: 01/03/2025 1. Syncope and collapse -one time syncopal episode with unclear etiology. Possible vasal vagal event as patient had developed GI distress shortly before. -EKG with T wave inversion in V1, 2 and AVL with no study prior for comparison. Denies any prior cardiac history. no recent chest pain, pressure, palpitations, or shortness of breath -Echo obtained showing preserved LVEF 55-60% no wall motion abnormalities and no significant heart valve disease. -No acute events on telemetry, will continue to monitor on telemetry with plan for OP ZIO monitor when appropriate for discharge. -Continued management of nasal fracture and incidental finding of sinusitis per primary team. -Continue Propranolol as per home regimen 01/04/25: -Patient is resting in bed without acute cardiac concerns at this time. She is quite sore with significant bruising to the face from her syncopal event and subsequent fall. -Continue propranolol with plan for outpatient cardiac monitoring (14 day ZIO) following hospitalization. -No acute events on telemetry overnight -Driving restriction as outlined by Dr. Herzog yesterday until 6 months free of loss of postural tone events. 01/05/2025: -patient is stable from a cardiac perspective. -Ongoing face and back pain secondary to her fall/syncopal event. Ongoing management of subsequent nasal fracture and pain per primary team. -No acute events on telemetry. Reassured patient that echocardiogram demonstrates a normal LVEF, no wall motion abnormalities and no significant valvular disease. -When patient is appropriate for discharge from a primary care perspective, recommend that patient have a ZIO monitor placed following discharge and follow up in 4-6 weeks. Office will contact to schedule. -Continue Propranolol (patient has a essential tremor) Case has been discussed with Dr. Herzog. Further recommendations regarding plan of care as per his assessment. I spent a total of 30 minutes on the date of service in preparation, delivery, documentation of the care provided to the patient excluding any time spent in the performance of separately billed services. BRIGIDA Curiel [facility] Admission and Anticipated Discharge Date Admission Date: January 03, 2025 Supervising Physician Co-Signing Physician Notes Attending attestation: Case reviewed with the advanced practitioner. I have personally performed a history and physical examination on the patient. I have reviewed the advanced practitioner's documentation on the date of service referenced in note, and I agree with, and take responsibility for the plan of care. Subjective: Still with neck and facial pain related to her facial trauma. Denies cardiac complaints. Exam: Cardiovascular regular rhythm, no murmurs, no edema Data: Echocardiogram this admission with normal LVEF Telemetry today reveals sinus rhythm in the 70s to 90s without arrhythmia. Impression: Syncope Essential tremor for which she is on propranolol on a chronic basis Recommendations: 14-day Zio patch as an outpatient with cardiology follow-up thereafter. Cardiology to sign off. Dr. Howard rounding for the weekend. Please call with questions or concerns. I spent a total of 20 minutes coordinating, documenting, and providing care for this patient excluding time spent in the performance of separately billed services or time spent by another provider. Vamsi Herzog, Subjective 01/05/2025: Patient seen and examined in follow up today. Feeling poorly. Denies any chest pain, pressure, palpitations, no shortness of breath, PND, pre- syncope, syncope or edema. Patient endorses significant facial and back pain s/p fall (syncopal event) which led to admission. Labs, vitals, diagnostics, telemetry and documentation reviewed. Telemetry reviewed showing SR rates 60-70's. No acute events overnight. No bradycardia, no pauses, no evidence of high grade heart block or other arrhythmia. Review of Systems Review of Systems: All systems reviewed & are unremarkable except as noted in HPI & below Physical Exam Constitutional: well developed, well nourished and + overweight; no acute distress Neck: normal visual inspection and trachea midline Respiratory: normal respiratory effort, lungs clear to auscultation Cardiovascular: RRR, no murmur, no edema Heart Sounds: normal S1 and normal S2 Vessels: dorsalis pedis pulses present; no JVD Extremities: no edema Skin: no rashes, warm and dry + ecchymosis (nasal bridge) Psychiatric: A+Ox3, euthymic affect Results & Data Vital Signs (Past 12 Hours) Vital Signs Temp Pulse Pulse Pulse Resp BP Pulse Ox 01/05/25 08:00 36.8 C 71 19 123/60 94 01/05/25 04:00 79 96/65 L 07/10/25 23:54 87 01/04/25 22:35 37.0 C 79 16 108/69 91 O2 Del Method 01/05/25 08:00 Room Air 01/05/25 04:00 01/04/25 23:54 01/04/25 22:35 Room Air Laboratory Results CBC 01/05/25 Range/Units 06:42 WBC 5.85 (4.8-10.8) K/ul RBC 4.60 (4.20-5.40) M/uL Hgb 14.7 (12.0-16.0) g/dl Hct 42.9 (37.0-47.0) % Plt Count 192 (130-400) K/uL Neut # (Auto) 4.14 (1.40-6.50) K/uL Lymph # (Auto) 0.91 L (1.20-3.40) K/uL Sabine # (Auto) 0.54 (0.11-0.59) K/uL Eos # (Auto) 0.14 (0.00-0.50) K/uL Baso # (Auto) 0.05 (0.00-0.20) K/uL Comprehensive Metabolic Panel 01/05/25 Range/Units 06:42 Sodium 140 (136-145) mmol/L Potassium 4.0 (3.5-5.1) mmol/L Chloride 109 H (98-107) mmol/L Carbon Dioxide 25 (21-32) mmol/L BUN 12 (6-23) mg/dl Creatinine 0.55 L (0.6-1.2) mg/dl Glucose 87 (70-99(Fasting)) mg/dl Calcium 8.8 (8.6-10.3) mg/dl Intake and Output 01/04/25 01/05/25 01/05/25 22:59 06:59 14:59 Intake Total 50 / 50 120 / 120 Balance 50 / 50 120 / 120 Intake: IV 50 / 50 cefTRIAXone SODIUM 2,000 mg In 50 / 50 50 ml @ 100 mls/hr IV Q24H [facility] Rx#:[id number] Oral 120 / 120 Other: # Unmeasured Voids 1 1 1 Weight 75.381 kg Weight Measurement Method Built in [facility] Care Time/CCT Total # of Minutes Spent Total Time Spent with Patient: Total time spent is greater than 50% in coordination of care (as documented) at patient's floor/unit and/or counseling patient: Coding Level of Care Code 33345 SUB INP/OBS CARE 3/50MIN History Detailed Exam Detailed Medical Decision Making High Complexity Diagnoses Syncope and collapse R55 Time Spent (min) 50 Comment 30 minutes were spent by BRIGIDA Duncan, 20 minutes by Vamsi Herzog DO
[2025-01-05] MEDS: BACLOFEN 10 MG TAB PO SCH (10:14)
--- NOTE | 2025-01-05 11:48 | Hospitalist Progress Note ---
Date of Service January 05, 2025 Assessment & Plan (1) Syncope and collapse: Plan: 69-year-old female with past medical history significant for hyperlipidemia, tremors, history of breast cancer in 1998 comes from [facility] because of syncope. Patient says she felt like moving her bowels so she went to bathroom and sat on commode. She did not strain to have bowel movement. Next thing she found herself on the floor and saw blood coming from the nose. She thinks she might have passed out for 5 minutes. Patient then crawled out of the living room and had episode of vomiting then pressed the alert button. Nurses came and EMS was called. Syncope Had syncope while she was on the commode. Reports previous history of syncopal episode as well; no incontinence of bladder/bowel. CT head,cervical spine did not show any injury/trauma Echocardiogram shows EF of 55 to 60% with grade 1 diastolic dysfunction EKG shows normal sinus rhythm; no significant ST or T wave changes. Continue to monitor on telemetry; will need Zio patch as outpatient to assess for cardiac arrhythmia Obtain PT OT evaluation Sinusitis and nasal fracture Neck pain For CT shows opacified right frontal sinus and right ethmoid sinusitis, her right frontal scalp hematoma. On ceftriaxone; plan to switch over to p.o. at the time of the discharge. Continue pain control with tramadol, ibuprofen and baclofen. Patient was not able to tolerate soft collar Essential Tremors On propranolol and benztropine,continue Hyperlipidemia on statin,continue DVT prophylaxis heparin Disposition From personal [facility]; PT OT pending Full code. Time spent evaluating patient, direct bedside care, chart review, placing orders, interpretation of diagnostic studies, discussion with consultants, patient, and family members, as well as other required patient management activities is 50 minutes Please note the above document was generated using voice recognition software. It may contain grammatical, syntax or spelling errors. Any formal questions or concerns about the content, text or information contained within the body of this dictation should be directly addressed to the provider for clarification Admission and Anticipated Discharge Date Admission Date: January 03, 2025 Subjective Patient seen and examined at bedside. She reports neck and upper back pain on the left side. ROM is limited by pain. Vital signs are stable; no significant events overnight. Review of Systems Review of Systems: All systems reviewed & are unremarkable except as noted in Subjective Physical Exam Physical Exam: Constitutional: Awake alert oriented x 3. Tremors present; reports at baseline Head; dressing intact over the forehead; clean and dry. Neck-Painful range of motion of the neck on the lateral aspect. no tenderness/deformity Respiratory: normal respiratory effort, lungs clear to auscultation, no wheeze, rales, rhonchi. Normal insp/exp effort, no accessory muscle use Cardiovascular: RRR, no murmur, no edema Vessels: no JVD or carotid bruit Chest: normal inspection of chest Abdomen: normal bowel sounds, soft, nontender, no hepatosplenomegaly Skin: no rashes, warm and dry normal turgor Neurologic: PERRL, EOMI, accommodation nl, no face palsy, no dysarthria CN's II- XI intact bilaterally and moves all extremities Psychiatric: A+Ox3, euthymic affect Results & Data Results & Data Vital Signs (Past 12 Hours) Vital Signs Temp Pulse Pulse Pulse Resp BP Pulse Ox 01/05/25 11:42 36.7 C 70 19 119/68 91 01/05/25 08:00 36.8 C 71 19 123/60 94 01/05/25 05:42 83 01/05/25 04:00 79 96/65 L 01/04/25 23:54 87 O2 Del Method 01/05/25 11:42 Room Air 01/05/25 08:00 Room Air 01/05/25 05:42 01/05/25 04:00 01/04/25 23:54
[2025-01-05] MEDS: HEPARIN SOD 5,000 UNIT/0.5 ML VIAL SQ SCH (13:46)
[2025-01-05] MEDS ORDERED: BACLOFEN 10 MG TAB PO SCH (14:00)
[2025-01-05] MEDS: MAGNESIUM CITRATE 296 ML/BTL PO STA (14:20)
[2025-01-05] MEDS: KETOROLAC TROMETHAMINE 15 MG/ML VIAL IV ONE (16:47)
[2025-01-05] MEDS: POLYETHYLENE (MIRALAX) 17 GM PACK PO SCH (21:21)
--- NOTE | 2025-01-06 13:03 | Hospitalist Progress Note ---
Date of Service January 06, 2025 Assessment & Plan (1) Syncope and collapse: Plan: 69-year-old female with past medical history significant for hyperlipidemia, tremors, history of breast cancer in 1998 comes from [facility] because of syncope. Patient says she felt like moving her bowels so she went to bathroom and sat on commode. She did not strain to have bowel movement. Next thing she found herself on the floor and saw blood coming from the nose. She thinks she might have passed out for 5 minutes. Patient then crawled out of the living room and had episode of vomiting then pressed the alert button. Nurses came and EMS was called. Syncope Had syncope while she was on the commode. Reports previous history of syncopal episode as well; no incontinence of bladder/bowel. CT head,cervical spine did not show any injury/trauma Echocardiogram shows EF of 55 to 60% with grade 1 diastolic dysfunction EKG shows normal sinus rhythm; no significant ST or T wave changes. Continue to monitor on telemetry; will need Zio patch as outpatient to assess for cardiac arrhythmia PT/OT recommend home Sinusitis and nasal fracture Neck pain For CT shows opacified right frontal sinus and right ethmoid sinusitis, her right frontal scalp hematoma. On ceftriaxone; plan to switch over to p.o. at the time of the discharge. Continue pain control with tramadol, ibuprofen and baclofen. Patient was not able to tolerate soft collar Essential Tremors On propranolol and benztropine,continue Hyperlipidemia on statin,continue DVT prophylaxis heparin [facility]position [facility]; able to take patient back on wednesday Full code. Please note the above document was generated using voice recognition software. It may contain grammatical, syntax or spelling errors. Any formal questions or concerns about the content, text or information contained within the body of this dictation should be directly addressed to the provider for clarification Admission and Anticipated Discharge Date Admission Date: January 03, 2025 Subjective Patient seen and examined at bedside. Reports that the pain is slightly better compared to previous day. Reports that Xanax helped with anxiety Review of Systems Review of Systems: All systems reviewed & are unremarkable except as noted in Subjective Physical Exam Physical Exam: Constitutional: Awake alert oriented x 3. Tremors present; reports at baseline Head; dressing intact over the forehead; clean and dry. Neck-Painful range of motion of the neck on the lateral aspect. no tenderness/deformity Respiratory: normal respiratory effort, lungs clear to auscultation, no wheeze, rales, rhonchi. Normal insp/exp effort, no accessory muscle use Cardiovascular: RRR, no murmur, no edema Vessels: no JVD or carotid bruit Chest: normal inspection of chest Abdomen: normal bowel sounds, soft, nontender, no hepatosplenomegaly Skin: no rashes, warm and dry normal turgor Neurologic: PERRL, EOMI, accommodation nl, no face palsy, no dysarthria CN's II- XI intact bilaterally and moves all extremities Psychiatric: A+Ox3, euthymic affect Results & Data Results & Data Vital Signs (Past 12 Hours) Vital Signs Temp Pulse Pulse Resp BP Pulse Ox O2 Del Method 01/06/25 11:18 36.5 C 66 18 128/82 93 Room Air 01/06/25 07:32 36.7 C 65 18 130/79 91 Room Air 01/06/25 05:35 76 01/06/25 02:52 36.6 C 79 20 100/65 95 Room Air
[2025-01-06] MEDS: DOCUSATE SODIUM/SENNA 50/8.6MG TAB PO SCH (16:45)
[2025-01-07] MEDS: MAGNESIUM HYDROXIDE SUSP 30 ML UDC PO SCH (09:20)
[2025-01-07] MEDS: POLYETHYLENE (MIRALAX) 17 GM PACK PO SCH (09:25)
--- NOTE | 2025-01-07 13:39 | Hospitalist Progress Note ---
Date of Service January 07, 2025 Assessment & Plan (1) Syncope and collapse: Plan: 69-year-old female with past medical history significant for hyperlipidemia, tremors, history of breast cancer in 1998 comes from [facility] because of syncope. Patient says she felt like moving her bowels so she went to bathroom and sat on commode. She did not strain to have bowel movement. Next thing she found herself on the floor and saw blood coming from the nose. She thinks she might have passed out for 5 minutes. Patient then crawled out of the living room and had episode of vomiting then pressed the alert button. Nurses came and EMS was called. Syncope Had syncope while she was on the commode. Reports previous history of syncopal episode as well; no incontinence of bladder/bowel. CT head,cervical spine did not show any injury/trauma Echocardiogram shows EF of 55 to 60% with grade 1 diastolic dysfunction EKG shows normal sinus rhythm; no significant ST or T wave changes. Continue to monitor on telemetry; will need Zio patch as outpatient to assess for cardiac arrhythmia PT/OT recommend home; her [facility] can take her back on 12/29/2024 Sinusitis and nasal fracture Neck pain For CT shows opacified right frontal sinus and right ethmoid sinusitis, her right frontal scalp hematoma. On ceftriaxone; plan to switch over to p.o. at the time of the discharge. Continue pain control with ibuprofen and baclofen. Patient was not able to tolerate soft collar Essential Tremors On propranolol and benztropine,continue Hyperlipidemia on statin,continue DVT prophylaxis heparin Disposition From personal [facility]; able to take patient back on wednesday Full code. Please note the above document was generated using voice recognition software. It may contain grammatical, syntax or spelling errors. Any formal questions or concerns about the content, text or information contained within the body of this dictation should be directly addressed to the provider for clarification Admission and Anticipated Discharge Date Admission Date: January 03, 2025 Subjective Patient reports significant improvement in neck pain. No significant events overnight Review of Systems Review of Systems: All systems reviewed & are unremarkable except as noted in Subjective Physical Exam Physical Exam: Constitutional: Awake alert oriented x 3. Tremors present; reports at baseline Neck-Painful range of motion of the neck on the lateral aspect. no tender ness/deformity. improved compared to yesterday Respiratory: normal respiratory effort, lungs clear to auscultation, no wheeze, rales, rhonchi. Normal insp/exp effort, no accessory muscle use Cardiovascular: RRR, no murmur, no edema Vessels: no JVD or carotid bruit Chest: normal inspection of chest Abdomen: normal bowel sounds, soft, nontender, no hepatosplenomegaly Skin: no rashes, warm and dry normal turgor Neurologic: PERRL, EOMI, accommodation nl, no face palsy, no dysarthria CN's II- XI intact bilaterally and moves all extremities Psychiatric: A+Ox3, euthymic affect Results & Data Results & Data Vital Signs (Past 12 Hours) Vital Signs Temp Pulse Pulse Pulse Resp BP Pulse Ox 01/07/25 12:12 36.5 C 61 18 126/76 94 01/07/25 07:54 36.3 C L 55 L 16 131/84 95 01/07/25 05:51 58 L 01/07/25 02:59 36.4 C L 60 18 129/85 91 O2 Del Method 01/07/25 12:12 Room Air 01/07/25 07:54 Room Air 01/07/25 05:51 01/07/25 02:59 Room Air
[2025-01-08 06:41] LABS: Hematocrit (blood only) 41.6 % (37.0-47.0); Hemoglobin 14.4 g/dl (12.0-16.0); Immature Granulocytes # (auto) 0.05 K/uL (0.01-0.20); Immature Granulocytes % (auto) 0.7 %; Mean Corpuscular Hemoglobin 32.4 pg (25.0-34.0); Mean Corpuscular Volume 93.5 fL (80.0-100.0); Platelet Count 231 K/uL (130-400); RDW Standard Deviation 45.7 fL (36.4-46.3); Red Blood Count 4.45 M/uL (4.20-5.40); White Blood Count 7.45 K/ul (4.8-10.8)
[2025-01-08 06:58] LABS: Anion Gap 7.0 (3-11); Blood Urea Nitrogen 13.0 mg/dl (6-23); Calcium 9.0 mg/dl (8.6-10.3); Carbon Dioxide 27.0 mmol/L (21-32); Chloride 108.0 mmol/L (98-107); Creatinine Clr Calc Pharmacy 81.3 ml/min; Glucose 93.0 mg/dl (70-99(Fasting)); Potassium 4.1 mmol/L (3.5-5.1); Sodium 142.0 mmol/L (136-145)
--- NOTE | 2025-01-08 12:37 | XRay Report ---
SINGLE VIEW CHEST CLINICAL HISTORY: Dyspnea FINDINGS: An AP, portable, upright chest radiograph is compared obtained. No prior studies are availa ble for comparison at the time of dictation. The heart is top normal for projection noting prominence of the pulmonary vasculature. There are low lung volumes with dependent atelectasis. There are small pleural effusions. No pneumothorax is seen. The skeletal structures are osteopenic. There are chroni c/healed bilateral rib fractures. There is chronic deformity left humeral head. IMPRESSION: 1. There is prominence of the pulmonary vasculature. Correlate clinically for evidence of fluid overl oad/mild congestive change. 2. Small pleural effusions with dependent atelectasis. ACT 112: Negative or not required by law. Electronically signed by: Aly Lovett M.D. 01/08/2025 12:36 PM
[2025-01-08] MEDS: FUROSEMIDE INJ 20 MG/2 ML VIAL IV ONE (12:59)
--- NOTE | 2025-01-08 14:26 | Hospitalist Progress Note ---
Date of Service January 08, 2025 Assessment & Plan (1) Syncope and collapse: Plan: 69-year-old female with past medical history significant for hyperlipidemia, tremors, history of breast cancer in 1998 comes from [facility] because of syncope. Patient says she felt like moving her bowels so she went to bathroom and sat on commode. She did not strain to have bowel movement. Next thing she found herself on the floor and saw blood coming from the nose. She thinks she might have passed out for 5 minutes. Patient then crawled out of the living room and had episode of vomiting then pressed the alert button. Nurses came and EMS was called. #Syncope -Had syncope while she was on the commode. -Reports previous history of syncopal episode as well; no incontinence of bladder/bowel. -CT head,cervical spine did not show any injury/trauma Echocardiogram shows EF of 55 to 60% with grade 1 diastolic dysfunction EKG shows normal sinus rhythm; no significant ST or T wave changes. Plan: -Continue to monitor on telemetry; will need Zio patch as outpatient to assess for cardiac arrhythmia -PT/OT recommend home; her [facility] can take her back on 12/29/2024 #Dyspnea -does have mild vasculature congestion on chest xray -on room air, patient does not feel ready to go home Plan: -1 dose 20 IV lasix today -start incetive spirometer #Sinusitis and nasal fracture #Neck pain -For CT shows opacified right frontal sinus and right ethmoid sinusitis, her right frontal scalp hematoma. -On ceftriaxone; plan to switch over to p.o. at the time of the discharge. -Continue pain control with ibuprofen, stop baclofen. Patient was not able to tolerate soft collar #Essential Tremors -On propranolol and benztropine,continue #Hyperlipidemia on statin,continue I spent a total of 45 minutes in direct patient care, including [id number] time with the patient and/or family, reviewing medical records, ordering and reviewing diagnostic tests, and coordinating care with other healthcare providers. This time includes: history taking, physical examination, medical decision making, counseling, ECG interpretation, imaging interpretation, lab interpretation, orders, and education, excluding time spent in the performance of separately billed services. Admission and Anticipated Discharge Date Admission Date: January 03, 2025 Subjective Patient seen and examined at bedside. Patient states she is feeling a bit SOB this morning, otherwise feels fine. Review of Systems Review of Systems: CONSTITUTIONAL: Patient denies fevers, chills, sweats and weight changes. EYES: Patient denies any visual symptoms. EARS, NOSE, AND THROAT: No difficulties with hearing. No symptoms of rhinitis or sore throat. CARDIOVASCULAR: Patient denies chest pains, palpitations, orthopnea and paroxysmal nocturnal dyspnea. RESPIRATORY: SOB GI: No nausea, vomiting, diarrhea, constipation, abdominal pain, hematochezia or melena. : No urinary hesitancy or dribbling. No nocturia or urinary frequency. No abnormal urethral discharge. MUSCULOSKELETAL: No myalgias or arthralgias. NEUROLOGIC: No chronic headaches, no seizures. Patient denies numbness, tingling or weakness. PSYCHIATRIC: Patient denies problems with mood disturbance. No problems with anxiety. ENDOCRINE: No excessive urination or excessive thirst. DERMATOLOGIC: Patient denies any rashes or skin changes. Physical Exam Physical Exam: Gen: A&O 3 NAD HEENT: NCAT, EOMI, not icteric. External ears normal. No rhinorrhea. Moist mucous membranes. Neck: Supple, full range of motion, no observable masses, No meningeal sign. Lungs: No Respiratory distress. CV: RRR, no edema. Abdomen: Soft, nondistended, No rebound tenderness. MSK: No joint swelling, no redness. Skin: No rashes, petechiae, lesions. Normal color per patient. Neuro: Normal Gait, Grossly intact. Psych: Appropriate for situation. Results & Data Results & Data Vital Signs (Past 12 Hours) Vital Signs Temp Pulse Pulse Pulse Resp BP Pulse Ox 01/08/25 14:08 90 01/08/25 10:45 36.7 C 82 18 115/84 93 01/08/25 10:15 36.9 C 65 55 L 18 129/76 94 01/08/25 07:43 36.9 C 65 18 129/76 94 01/08/25 07:17 56 L 01/08/25 02:43 37.0 C 79 17 144/74 H 91 O2 Del Method 01/08/25 14:08 01/08/25 10:45 Room Air 01/08/25 10:15 01/08/25 07:43 Room Air 01/08/25 07:17 01/08/25 02:43 Room Air Laboratory Results -personally reviewed,
[2025-01-09] MEDS: ALBUMIN 25% 12.5 GM/50 ML VIAL IV ONE (03:29)
[2025-01-09 06:13] LABS: Hematocrit (blood only) 43.6 % (37.0-47.0); Hemoglobin 14.9 g/dl (12.0-16.0); Mean Corpuscular Hemoglobin 31.9 pg (25.0-34.0); Mean Corpuscular Volume 93.4 fL (80.0-100.0); Platelet Count 230 K/uL (130-400); RDW Standard Deviation 46.1 fL (36.4-46.3); Red Blood Count 4.67 M/uL (4.20-5.40); White Blood Count 7.74 K/ul (4.8-10.8)
[2025-01-09 06:35] LABS: Anion Gap 7.0 (3-11); Blood Urea Nitrogen 16.0 mg/dl (6-23); Calcium 9.2 mg/dl (8.6-10.3); Carbon Dioxide 28.0 mmol/L (21-32); Chloride 106.0 mmol/L (98-107); Creatinine Clr Calc Pharmacy 77.4 ml/min; Glucose 98.0 mg/dl (70-99(Fasting)); Magnesium 2.5 mg/dl (1.7-2.4); Potassium 4.3 mmol/L (3.5-5.1); Sodium 141.0 mmol/L (136-145)
[2025-01-09 07:48] VITALS: RESP 18; O2SAT 96
[2025-01-09 10:58] VITALS: BP 122/85; TEMP 97.5
[2025-01-09 12:40] VITALS: PULSE 55
--- NOTE | 2025-01-09 14:21 | Discharge Summary ---
Discharge Summary Date of Service January 09, 2025 Principal Dx & Hospital Course #1 = Principal Diagnosis (1) Syncope and collapse: 69-year-old female with past medical history significant for hyperlipidemia, tremors, history of breast cancer in 1998 comes from [facility] because of syncope. Patient says she felt like moving her bowels so she went to bathroom and sat on commode. She did not strain to have bowel movement. Next thing she found herself on the floor and saw blood coming from the nose. She thinks she might have passed out for 5 minutes. Patient then crawled out of the living room and had episode of vomiting then pressed the alert button. Nurses came and EMS was called. #Syncope -Had syncope while she was on the commode. -Reports previous history of syncopal episode as well; no incontinence of bladder/bowel. -CT head,cervical spine did not show any injury/trauma Echocardiogram shows EF of 55 to 60% with grade 1 diastolic dysfunction EKG shows normal sinus rhythm; no significant ST or T wave changes. Plan: -Continue to monitor on telemetry; will need Zio patch as outpatient to assess for cardiac arrhythmia -PT/OT recommend home; her [facility] can take her back on 12/29/2024 -patient not prescribed xanax outpatient for anxiety and will not prescribe at discharge #Dyspnea -does have mild vasculature congestion on chest xray -on room air, patient does not feel ready to go home Plan: -1 dose 20 IV lasix today -start incetive spirometer #Sinusitis and nasal fracture #Neck pain -For CT shows opacified right frontal sinus and right ethmoid sinusitis, her right frontal scalp hematoma. -On ceftriaxone; plan to switch over to p.o. at the time of the discharge. -Continue pain control with ibuprofen, stop baclofen. Patient was not able to tolerate soft collar #Essential Tremors -On propranolol and benztropine,continue #Hyperlipidemia on statin,continue Notes For Next Care Provider 69-year-old female with past medical history significant for hyperlipidemia, tremors, history of breast cancer in 1998 comes from [facility] because of syncope. On medicine, PT/OT recommended return home. Syncope consistent with vasovagal syncopal episode. Full CT imaging did not show any fracture in neck, head, chest xray revealed mild pulmonary congestion and was given lasix with improvement. On 01/08, patient stable for discharged but stated she wanted another day in the hospital. On 01/09/2025, patient hemodynamically stable, 96% on room air, with unremarkable lab work, medically stable for discharge home. -of note, did not prescribe xanax at discharge as not home medication and significant polypharmacy already prescribed outpatient -patient responded well to oxycodone for pain, stopped baclofen Medication Changes From Visit -see below Admission HPI Per Admitting Provider 69-year-old female with past medical history significant for hyperlipidemia, tremors, history of breast cancer in 1998 comes from [facility] because of syncope. Patient says she felt like moving her bowels so she went to bathroom and sat on commode. She did not strain to have bowel movement. Next thing she found herself on the floor and saw blood coming from the nose. She thinks she might have passed out for 5 minutes. Patient then crawled out of the living room and had episode of vomiting then pressed the alert button. Nurses came and EMS was called. Patient complains of some neck pain currently. Denies any headache currently. No chest pain or shortness of breath. No cough. No fevers. No runny nose. Currently no nausea. No abdominal pain. Micturating okay. Hemodynamics are okay. Past medical history. As mentioned above Past surgical history. Left rotator cuff repair x 2. Cholecystectomy. Left mastectomy for breast cancer. Social history. Denies smoking. No alcohol use. Family history. Mother had breast cancer. Discharge Exam Gen: A&O 3 NAD HEENT: NCAT, EOMI, not icteric. External ears normal. No rhinorrhea. Moist mucous membranes. Neck: Supple, full range of motion, no observable masses, No meningeal sign. Lungs: No Respiratory distress. CV: RRR, no edema. Abdomen: Soft, nondistended, No rebound tenderness. MSK: No joint swelling, no redness. Skin: No rashes, petechiae, lesions. Normal color per patient. Neuro: Normal Gait, Grossly intact. Psych: Appropriate for situation. Updated Medication List Medication Instructions Recorded Confirmed Type acetaminophen 325 mg tablet 325 mg PO Q6H PRN PAIN/FEVER 01/03/25 01/03/25 History (Tylenol) atorvastatin 20 mg tablet 20 mg PO DAILY 01/03/25 01/03/25 History benztropine 0.5 mg tablet 0.5 mg PO BID 01/03/25 01/03/25 History fluticasone propionate 50 1 spray intranasal BID PRN Nasal 01/03/25 01/03/25 History mcg/actuation nasal Congestion spray,suspension lamotrigine 200 mg tablet 200 mg PO DAILY 01/03/25 01/03/25 History propranolol 20 mg tablet 20 mg PO BID 01/03/25 01/03/25 History trazodone 150 mg tablet 150 mg PO HS 01/03/25 01/03/25 History diclofenac sodium 1 % topical gel 2 g EXT TID #100 grams 01/08/25 Rx (Voltaren Arthritis Pain) ibuprofen 600 mg tablet 600 mg PO Q8H PRN pain 7 days #21 01/08/25 Rx tabs oxycodone 5 mg tablet 5 mg PO Q8H PRN pain 5 days #10 01/08/25 Rx tabs pantoprazole 40 mg tablet,delayed 40 mg PO QAM 7 days #7 tabs 01/08/25 Rx release Hospital Stay Data Consultations 01/03/25 01:22 ED Decision to Admit Stat 01/03/25 08:00 Consult Cardiology Routine Diagnostic Imagining Performed 01/02/25 22:04 CT cervical spine wo con Stat CT face [CT facial bones wo con] Stat CT head/brain wo con Stat Pending Results Patient Have Any Pending Studies at Discharge: No Discharge Instructions Given to Patient (Per Discharging Provider) 1. Please follow up with ENT for nasal fracture, PCP (for vasovagal syncope). 2. Please stay hydrated! 3. Continue routine follow ups with neurology for tremors. Total Time Total Time Spent Total Time Spent (In Minutes): I spent a total of 35 minutes in direct patient care, including [id number] time with the patient and/or family, reviewing medical records, ordering and reviewing diagnostic tests, and coordinating care with other healthcare providers. This time includes: history taking, physical examination, medical decision making, counseling, ECG interpretation, imaging interpretation, lab interpretation, orders, and education, excluding time spent in the performance of separately billed services.
== END 2025-01-09 12:10 | disposition home or self-care (01) | DRG 312 ==
LOC: ED 21:54 → SUATTDRO 01-03 02:11 → EDINP 01-03 02:11 → 2S 01-03 02:53